=== PATIENT | female | born 1990 | race Caucasian/White ===

== ENCOUNTER 2021-07-28 08:37 | Inpatient (IN) | payer OTHER ==
[~2021-07-28] VITALS: Ht 160 cm; Wt 92.0 kg
[2021-07-28] MEDS ORDERED: OXYTOCIN 30U/ 0.9% NaCL 500ML 500 ML IV ONE (09:10)
[2021-07-28] MEDS ORDERED: TERBUTALINE 1 MG/ML, 1ML IVPush PRN (09:30)
[2021-07-28] MEDS ORDERED: TERBUTALINE 1 MG/ML, 1ML SQ PRN (09:30)
[2021-07-28] MEDS ORDERED: ONDANSETRON 2MG/ML, 2ML IVPush PRN (09:30)
[2021-07-28] MEDS ORDERED: FENTANYL PF 100 MCG/2ML IV PRN (09:30)
[2021-07-28] MEDS ORDERED: OXYTOCIN 30U/ 0.9% NaCL 500ML 500 ML IV PRN (09:30)
[2021-07-28] MEDS ORDERED: D5%-LACTATED RINGERS 1,000 ML IV SCH (09:30)
[2021-07-28] MEDS ORDERED: CALCIUM CARBONATE 500 MG TAB.CHEW PO PRN (09:30)
[2021-07-28] MEDS ORDERED: LACTATED RINGERS 1,000 ML IV SCH ×2 (09:30→20:30)
[2021-07-28] MEDS ORDERED: FENTANYL PF 100 MCG/2ML IVPush PRN (09:30)
[2021-07-28 09:37] LABS: BASOPHILS % (AUTO) 1 % (0-1); EOSINOPHILS % (AUTO) 1 % (1-7); LYMPHOCYTES % (AUTO) 17 % (22-44); MEAN CORPUSCULAR HEMOGLOBIN 30.8 pg (27.0-34.8); MEAN CORPUSCULAR HGB CONC 33.8 g/dL (32.4-35.8); MEAN PLATELET VOLUME 10.6 fL (7.4-10.4); MONOCYTES % (AUTO) 4 % (2-9); NEUTROPHILS % (AUTO) 78 % (42-75); PLATELET COUNT 188 x10^3/uL (130-400); RED BLOOD COUNT 4.09 x10^6/uL (3.82-5.3); RED CELL DISTRIBUTION WIDTH 13.2 % (9.6-15.2)
[2021-07-28] MEDS ORDERED: LIDOCAINE 1%, 20ML ONE (09:41)
[2021-07-28] MEDS ORDERED: NEWBORN KIT ONE (09:41)
[2021-07-28] MEDS ORDERED: MISOPROSTOL 200 MCG TABLET ONE (09:42)
[2021-07-28] MEDS ORDERED: BUPIVACAINE 0.25% ONE ×3 (19:50→20:45)
[2021-07-28] MEDS ORDERED: FENTANYL/BUPIV./NS/PF 250 ML EPIDCONT ONE (19:51)
[2021-07-28] MEDS ORDERED: FENTANYL/BUPIV./NS/PF 250 ML EPIDCONT SCH (20:30)
[2021-07-28] MEDS ORDERED: EPHEDRINE 50 MG/ML, 1ML IVPush PRN (20:30)
[2021-07-28] MEDS ORDERED: LACTATED RINGERS 1,000 ML IVBOLUS PRN (20:30)
[2021-07-29] MEDS ORDERED: SODIUM CITRATE/CITRIC ACID 15 ML UDC ONE (03:57)
[2021-07-29] MEDS ORDERED: METOCLOPRAMIDE 5 MG/ML, 2ML ONE (03:57)
[2021-07-29] MEDS ORDERED: LIDOCAINE/MPF 2%-EPI 1:200K, 20 ML ONE (04:08)
[2021-07-29] MEDS ORDERED: AZITHROMYCIN 500 MG in SODIUM CHLORIDE 0.9% 250 ML IV ONE (04:30)
[2021-07-29] MEDS ORDERED: ONDANSETRON 2MG/ML, 2ML IVPush ONE (04:30)
[2021-07-29] MEDS ORDERED: LACTATED RINGERS 1,000 ML IVBOLUS ONE (04:30)
[2021-07-29] MEDS ORDERED: METHYLERGONOVINE 0.2 MG/ML IM PRN (05:30)
[2021-07-29] MEDS ORDERED: MISOPROSTOL 200 MCG TABLET PR PRN (05:30)
[2021-07-29] MEDS: LACTATED RINGERS 1,000 ML IV SCH ×5 (05:30→21:30)
[2021-07-29] MEDS: KETOROLAC 30 MG/1 ML IV SCH ×4 (05:30→23:26)
[2021-07-29] MEDS ORDERED: CARBOPROST TROMETHAMINE 250 MCG/ML, 1ML IM PRN (05:30)
[2021-07-29] MEDS ORDERED: IBUPROFEN 800 MG TABLET PO PRN (05:30)
[2021-07-29] MEDS ORDERED: MORPHINE SULFATE 4 MG/ML, 1ML IVPush PRN (05:30)
[2021-07-29] MEDS ORDERED: TRANEXAMIC ACID 100 MG/ML, 10ML IV ONE (05:30)
[2021-07-29] MEDS ORDERED: morphine SULFATE 10 MG/ML, 1ML IM PRN (05:30)
[2021-07-29] MEDS ORDERED: OXYcodone IR 5MG TABLET PO PRN (05:30)
[2021-07-29] MEDS: OXYTOCIN 30U/ 0.9% NaCL 500ML 500 ML IV SCH ×2 (05:30→15:30)
[2021-07-29] MEDS ORDERED: SIMETHICONE 80 MG CHEW TAB PO PRN (05:30)
[2021-07-29 07:10] VITALS: BP 98/61
[2021-07-29] MEDS: OXYcodone IR 5MG TABLET PO PRN ×3 (08:48→19:34)
[2021-07-29] MEDS: DOCUSATE 100 MG CAPSULE PO PRN ×2 (11:39→19:33)
[2021-07-29] MEDS: PRENATAL VIT/IRON/FA 1 EACH TABLET PO SCH (11:39)
[2021-07-29 11:43] VITALS: BP 107/53
[2021-07-29 13:20] LABS: BASOPHILS % (AUTO) 1 % (0-1); EOSINOPHILS % (AUTO) 0 % (1-7); LYMPHOCYTES % (AUTO) 11 % (22-44); MEAN CORPUSCULAR HEMOGLOBIN 30.1 pg (27.0-34.8); MEAN CORPUSCULAR HGB CONC 33.1 g/dL (32.4-35.8); MEAN PLATELET VOLUME 10.4 fL (7.4-10.4); MONOCYTES % (AUTO) 4 % (2-9); NEUTROPHILS % (AUTO) 85 % (42-75); PLATELET COUNT 174 x10^3/uL (130-400); RED BLOOD COUNT 3.35 x10^6/uL (3.82-5.3)
[2021-07-29 16:37] VITALS: BP 106/69
[2021-07-29] MEDS: ACETAMINOPHEN 325 MG TABLET PO PRN (19:33)
[2021-07-29 20:35] VITALS: BP 103/67
[2021-07-29 23:27] VITALS: BP 115/63
[2021-07-30] MEDS: OXYTOCIN 30U/ 0.9% NaCL 500ML 500 ML IV SCH ×3 (01:30→21:30)
[2021-07-30] MEDS: LACTATED RINGERS 1,000 ML IV SCH ×6 (01:30→21:30)
[2021-07-30] MEDS: KETOROLAC 30 MG/1 ML IV SCH ×3 (05:35→17:35)
[2021-07-30 07:45] VITALS: BP 112/71
[2021-07-30] MEDS: PRENATAL VIT/IRON/FA 1 EACH TABLET PO SCH (09:00)
[2021-07-30] MEDS: DOCUSATE 100 MG CAPSULE PO PRN (10:47)
[2021-07-30] MEDS: OXYcodone IR 5MG TABLET PO PRN ×2 (10:48→16:37)
[2021-07-30 22:45] VITALS: BP 122/78
[2021-07-31] MEDS: KETOROLAC 30 MG/1 ML IV SCH (01:16)
[2021-07-31] MEDS: LACTATED RINGERS 1,000 ML IV SCH ×2 (05:30→07:22)
[2021-07-31] MEDS: ACETAMINOPHEN 325 MG TABLET PO PRN (06:04)
[2021-07-31] MEDS ORDERED: OXYC-302 PO (06:11)
[2021-07-31] MEDS: OXYTOCIN 30U/ 0.9% NaCL 500ML 500 ML IV SCH (07:22)
[2021-07-31 07:30] VITALS: BP 124/86
[2021-07-31] MEDS: PRENATAL VIT/IRON/FA 1 EACH TABLET PO SCH (08:15)
[2021-07-31] MEDS: DOCUSATE 100 MG CAPSULE PO PRN (08:15)
[2021-07-31] MEDS ORDERED: IBUP-1222 PO (08:40)
== END 2021-07-31 10:10 | disposition home or self-care (01) | DRG 788 ==
LOC: LDOP 08:37 → LDIP 09:10 → 2NW 07-29 07:00
PROVIDERS: ADMIT Student in an Organized Health Care Education/Training Program; ATTEND Student in an Organized Health Care Education/Training Program
PROC: 10D00Z1 Extraction of Products of Conception, Low, Open Approach (ICD-10-PCS; principal; 2021-07-29)
DX: O42.92 Full-term premature rupture of membranes, unspecified as to length of time between rupture and onset of labor (principal); O62.1 Secondary uterine inertia; O64.0XX0 Obstructed labor due to incomplete rotation of fetal head, not applicable or unspecified; O77.0 Labor and delivery complicated by meconium in amniotic fluid; Z20.822 Contact with and (suspected) exposure to COVID-19; Z37.0 Single live birth; Z3A.39 39 weeks gestation of pregnancy
CPT/HCPCS: 36415; J7121; 85025; 86592; 86850; 86900; 87635; G0378; J1885; J2405; J2590; J3010; J7120